=== PATIENT | male | born 1960 | race Caucasian/White ===

== ENCOUNTER 2016-06-20 19:31 | Emergency (ER) | payer MEDICAID ==
[2016-06-20 19:41] VITALS: BP 243/118; PULSE 87; TEMP 97.9; BMI 31.0
--- NOTE | 2016-06-20 19:54 | EDPRACDOC ---
- General Information Chief Complaint: Medication Refill Stated Complaint: GOUT RT HEEL/MED REFILL Time Seen by Provider: 06/20/16 19:45 Information Source: Patient Mode Of Arrival: Car Home Medications: Home Medications Clonidine HCl 0.2 mg PO BID 08/05/14 Hydrocodone Bit/Acetaminophen [[place] 7.5-325 Tablet] 1 each PO BID PRN 12/22/14 Oxycodone Immediate Release [Oxycodone Immediate Release (OxyIR)] 5 mg PO Q6H PRN #15 tab 12/23/14 Prednisone [Deltasone, Orasone] 1 tab PO BID #10 tab 12/23/14 CloNIDine (Antihypertensive) [Catapres] 0.2 mg PO BID #60 tab 06/20/16 Colchicine 0.6 mg PO DAILY #3 tablet 06/20/16 Hydrocodone Bit/Acetaminophen [[place] 5-325 Tablet] 1 each PO Q4H #10 tab Indomethacin 50 mg PO TID #6 capsule 06/20/16 Sertraline HCl [Zoloft] 50 mg PO DAILY #30 tablet 06/20/16 Allergies/Adverse Reactions: Allergies Allergy/AdvReac Type Severity Reaction Status Date / Time No Known Allergies Allergy Verified 12/22/14 22:08 - History of Present Illness Duration Without Medication: 'a long time' HPI: PT PRESENTS TODAY WITH AOC GOUT FLARE TO THE RIGHT ANKLE. ALSO STATES HE NEEDS REFILLS ON HIS OTHER MEDICATIONS. STATES HAS "BEEN OUT FOR AWHILE". NO ASSOCIATED S/S OF HTN AT THIS TIME. 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) - Social Medical History Smoking Status: Never smoker EDM Review of Systems - Review of Systems ROS Negative Except as Marked: Yes All systems reviewed and were negative except as marked Constitutional: No Symptoms Reported Respiratory: No Symptoms Reported Cardiovascular: No Symptoms Reported Gastrointestinal: No Symptoms Reported Neurological: No Symptoms Reported Musculoskeletal: Ankle Integumentary: No Symptoms Reported - Physical Exam Constitutional: Alert (Awake), No apparent distress Oriented to: Time, Person, Place Last recorded Vital Signs: Last Vital Signs Temp 97.9 F 06/20/16 19:40 Pulse 87 06/20/16 19:40 Resp 20 06/20/16 19:40 BP 243/118 H 06/20/16 19:40 Pulse Ox 98 06/20/16 19:40 Oxygen Pulse Oxygen Saturation 98 O2 Device Oxygen Flow Rate Fraction of Inspired Oxygen ( FIO2) - HEENT Head: Normal Eye Exam: Normal Neck: Normal, Denies Pain, Midline - Respiratory/Cardiovascular Respiratory: Normal - CTA Cardiovascular: Normal - GI Palpation: Normal Tenderness: Non tender - Musculoskeletal Back: Normal Extremities: Other (NOTED MILD SWELLING/REDNESS TO RIGHT ANKLE CONSISTENT WITH GOUT) - Integumentary Skin: Normal Lymphatics: Normal - Neurologic Cerebellar: Normal Mood Description: Normal Thought: Coherent Perception: Normal Decision Time to Discharge: 19:50 - Departure Disposition: Home Condition: Stable Final Diagnosis: Medication refill Gout Qualifiers: Gout site: ankle Gout etiology: unspecified cause Laterality: right Chronicity : unspecified Qualified Code(s): M10.9 - Gout, unspecified Hypertension Qualifiers: Hypertension type: essential hypertension Qualified Code(s): I10 - Essential ( primary) hypertension Instructions: Chronic Hypertension (ED), Medication Refill Education/Counseling Given To: Patient Education/Counseling Given Regarding: Diagnosis, Treatment, Follow Up Referrals: None,No Provider [Primary Care Provider] - One Week ONEL OROPEZA [NonStaff] - One Week Brenda Gallo MD [Staff Physician] - One Week Prescriptions: New CloNIDine (Antihypertensive) [Catapres] 0.2 mg PO BID #60 tab Colchicine 0.6 mg PO DAILY #3 tablet Hydrocodone Bit/Acetaminophen [[place] 5-325 Tablet] 1 each PO Q4H #10 tab Indomethacin 50 mg PO TID #6 capsule Sertraline HCl [Zoloft] 50 mg PO DAILY #30 tablet No Action Clonidine HCl 0.2 mg PO BID Hydrocodone Bit/Acetaminophen [[place] 7.5-325 Tablet] 1 each PO BID PRN PRN Reason: Pain Prednisone [Deltasone, Orasone] 1 tab PO BID #10 tab Oxycodone Immediate Release [Oxycodone Immediate Release (OxyIR)] 5 mg PO Q6H PRN #15 tab PRN Reason: Pain Forms: Primary / Family Care Contact Additional Instructions: PLEASE ESTABLISH A PCP FOR FURTHER MANAGEMENT OF YOUR MEDICATIONS.
== END 2016-06-20 20:00 | disposition home or self-care (01) ==
LOC: EDMC 19:31
DX: M10.9 Gout, unspecified (principal); I10 Essential (primary) hypertension
CPT/HCPCS: 99282